=== PATIENT | male | born 1995 | race Two or more races ===

== ENCOUNTER → 2020-02-09 | Emergency (ER) | payer MEDICAID, OTHER ==
[~2020-02-09] VITALS: Ht 185.4 cm; Wt 122.9 kg
[~2020-02-09] MED LIST: IBUPROFEN 800 MG TAB PO ONE
[2020-02-09 17:20] VITALS: BP 125/74
== END | disposition home or self-care (01) ==
LOC: ER 17:09
DX: S93.401A Sprain of unspecified ligament of right ankle, initial encounter (principal); X58.XXXA Exposure to other specified factors, initial encounter; Y93.89 Activity, other specified; Y92.89 Other specified places as the place of occurrence of the external cause; Y99.8 Other external cause status
CPT/HCPCS: 73610; 73630

== ENCOUNTER 2022-10-17 04:19 | Emergency (ER) | payer BC, OTHER ==
[~2022-10-17] VITALS: Ht 182.9 cm; Wt 130.0 kg
[2022-10-17 05:02] VITALS: BP 125/89
== END 2022-10-17 04:43 ==
LOC: ER 04:19 → EDBD 04:19 → ER 04:43
DX: Z00.00 Encounter for general adult medical examination without abnormal findings (principal)